=== PATIENT | female | born 1965 | race Caucasian/White ===

== ENCOUNTER 2018-02-05 10:50 | Emergency (ER) | payer MEDICAID, OTHER ==
--- NOTE | 2018-02-05 11:29 | ED Physician Documentation ---
PD HPI HEADACHE - Stated complaint Stated Complaint: HEADACHE/NAUSEA/VOMITING - Chief complaint Chief Complaint: Heent - History obtained from History obtained from: Patient, Family - History of Present Illness Timing - onset: How many days ago (2) Timing - onset during: Sleep, Rest Timing - duration: Days (3) Timing - details: Abrupt onset, Still present, Waxing and waning Worst headache ever?: Worst headache ever? Location: Front, Right Quality: Throbbing Associated symptoms: Stiff neck, Nausea, Vomiting. No: Fever, Weakness, Numbness, Syncope, Seizure, Eye pain, Vision changes Improved by: Rest, Meds Contributing factors: Hypertension. No: Anticoagulated, Possible carbon monoxide Similar symptoms before: Has not had sx before Recently seen: Not recently seen - Additional information Additional information: 52-year-old female who is under a lot of stress secondary to issues with her children has suddenly developed a headache on the right side of her head. She had this headache started up on her 3 days ago in the morning and she had resolution of the headache yesterday for a period of time. When she woke this morning the headache was back again and she is here now for evaluation and treatment. She has a throbbing sensation in the right side of her head pain in her neck right at the base of her skull she is able flex and extend her neck without difficulty. She has had some vomiting and she has had some diarrhea. She feels dehydrated. 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 - Present Medications Home Medications: Ambulatory Orders Medication Instructions Recorded Confirmed Ondansetron [Zofran] 4 mg PO Q6H PRN 11/02/13 01/13/15 Alprazolam [Xanax] 10/18/14 01/13/15 HYDROcod/ACETAM 5/325 [Vicodin 1 - 2 ea PO Q6H PRN 10/18/14 01/13/15 5/325] Lisinopril 10/18/14 01/13/15 Pantoprazole [Protonix] 40 mg PO BID #60 tablet 10/18/14 01/13/15 Promethazine Supp [Phenergan Supp] 25 mg MN Q6H PRN #15 supp 10/18/14 01/13/15 Sertraline [Zoloft] 10/18/14 01/13/15 Sucralfate [Carafate] 1 gm PO AC #90 tablet 10/18/14 01/13/15 Ondansetron [Zofran Odt] 8 mg PO Q6H PRN #20 tab.rapdis 01/13/15 Promethazine Supp [Phenergan Supp] 25 mg MN Q6H PRN #15 supp 01/13/15 oxyCODONE [Roxicodone] 5 mg PO Q4-6H PRN #20 tablet 01/13/15 Ondansetron Odt [Zofran] 4 mg TL Q6H PRN #10 tablet 02/05/18 Potassium Chloride 10 meq PO QID #10 tablet.er 02/05/18 - Allergies Allergies/Adverse Reactions: Allergies Allergy/AdvReac Type Severity Reaction Status Date / Time No Known Drug Allergies Allergy Verified 02/05/18 11:14 - Social History Does the pt smoke?: No Smoking Status: Never smoker Does the pt drink ETOH?: Yes Does the pt have substance abuse?: Yes PD ED PE NORMAL - Vitals Vital signs reviewed: Yes (hypertensive ) - General General: Alert and oriented X 3, Well developed/nourished, Other (appears to be in pain with 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, No motor deficit, No sensory deficit, Normal speech Eye Opening: Spontaneous Motor: Obeys Commands Verbal: Oriented GCS Score: 15 - Psych Psych: Normal mood, Normal affect Results - Vitals Vitals: Vital Signs - 24 hr 02/05/18 02/05/18 02/05/18 11:12 12:20 12:30 Temperature 36.4 C L Heart Rate 92 84 82 Respiratory 18 20 20 Rate Blood Pressure 186/112 H 179/112 H 192/124 H O2 Saturation 99 02/05/18 02/05/18 13:47 14:05 Temperature Heart Rate 69 65 Respiratory 14 16 Rate Blood Pressure 101/69 105/70 O2 Saturation 95 97 Oxygen O2 Source Room air - Labs Labs: Laboratory Tests 02/05/18 02/05/18 11:25 11:25 WBC 8.7 RBC 4.69 Hgb 15.8 Hct 46.0 MCV 98.0 MCH 33.7 H MCHC 34.4 RDW 13.9 Plt Count 245 MPV 8.5 Neut # (Auto) 6.4 Lymph # (Auto) 1.5 [place] # (Auto) 0.8 Eos # (Auto) 0.0 Baso # (Auto) 0.0 Absolute Nucleated RBC 0.00 Nucleated RBC % 0.0 Sodium 137 Potassium 2.7 L Chloride 96 L Carbon Dioxide 25 Anion Gap 16.0 H BUN 15 Creatinine 0.8 Estimated GFR (MDRD) 76 L Glucose 150 H Calcium 9.9 Total Bilirubin 1.0 AST 30 ALT 21 Alkaline Phosphatase 90 Total Protein 8.7 H Albumin 4.3 Globulin 4.4 H Albumin/Globulin Ratio 1.0 Lipase 23 - Rads (name of study) CT head without Radiology: Prelim report reviewed (Impression: Normal head CT without IV contrast. No change from 03/01/2008), EMP read indepedently, See rad report PD MEDICAL DECISION MAKING - ED course Complexity details: reviewed old records, reviewed results, re-evaluated patient , considered differential, d/w patient, d/w family ED course: 52-year-old female with chronic pain on Vicodin HP has developed an acute tension headache and has begun having some vomiting. She has not been able to hold her pain medications down. On examination she does have some pain in the trapezius at the insertion to the occiput on the right side and the corresponding right winston-cranial pain. - Sepsis Event Vital Signs: Vital Signs - 24 hr 02/05/18 02/05/18 02/05/18 11:12 12:20 12:30 Temperature 36.4 C L Heart Rate 92 84 82 Respiratory 18 20 20 Rate Blood Pressure 186/112 H 179/112 H 192/124 H O2 Saturation 99 02/05/18 02/05/18 13:47 14:05 Temperature Heart Rate 69 65 Respiratory 14 16 Rate Blood Pressure 101/69 105/70 O2 Saturation 95 97 Oxygen O2 Source Room air Departure - Departure Disposition: 01 Home, Self Care Clinical Impression: Tension headache, Dehydration, Hypokalemia Condition: Stable Instructions: ED Dehydration, ED Headache Tension, ED Potassium Deficiency Follow-Up: Salina Carrero PA [Primary Care Provider] - Prescriptions: Ondansetron Odt [Zofran] 4 mg TL Q6H PRN #10 tablet PRN Reason: Nausea / Vomiting Potassium Chloride 10 meq PO QID #10 tablet.er
[2018-02-05] MEDS ORDERED: ONDANSETRON 4 MG/2 ML VIAL IVP STA (11:31)
[2018-02-05] MEDS ORDERED: DEXAMETHASONE 10 MG/ML VIAL IVP STA (11:40)
[2018-02-05] MEDS ORDERED: SODIUM CHLORIDE 0.9% 1,000 ML IV ONE (11:40)
[2018-02-05] MEDS ORDERED: KETOROLAC 60 MG/2 ML VIAL IVP STA (11:40)
[2018-02-05] MEDS ORDERED: HYDROmorphone 1 MG/ML CARPUJECT IVP STA ×2 (11:40→13:54)
[2018-02-05] MEDS ORDERED: ONDANSETRON 4 MG/2 ML VIAL ONE (11:43)
[2018-02-05 11:52] LABS: BASOPHILS % (AUTO) 0.4 %; EOSINOPHILS % (AUTO) 0.3 %; HGB - HEMOGLOBIN 15.8 g/dL (12.0-16.0); LYMPHOCYTES # (AUTO) 1.5 10^3/uL (1.5-3.5); LYMPHOCYTES % (AUTO) 16.9 %; MEAN CORPUSCULAR HEMOGLOBIN 33.7 pg (27.0-31.0); MEAN CORPUSCULAR HGB CONC 34.4 g/dL (32.0-36.0); MEAN PLATELET VOLUME 8.5 fL (7.9-10.8); MONOCYTES # (AUTO) 0.8 10^3/uL (0.0-1.0); MONOCYTES % (AUTO) 8.9 %; NEUTROPHILS # (AUTO) 6.4 10^3/uL (1.5-6.6); NEUTROPHILS % (AUTO) 73.5 %; PLT - PLATELET COUNT 245 10^3/uL (130-450); RED BLOOD COUNT 4.69 10^6/uL (4.20-5.40); RED CELL DISTRIBUTION WIDTH 13.9 % (12.0-15.0); WHITE BLOOD COUNT 8.7 x10^3/uL (4.8-10.8)
[2018-02-05 12:04] LABS: ALBUMIN 4.3 g/dL (3.2-5.5); CALCIUM 9.9 mg/dL (8.5-10.3); CREATININE 0.8 mg/dL (0.4-1.0); TOTAL PROTEIN 8.7 g/dL (6.7-8.2)
--- NOTE | 2018-02-05 12:21 | CT Report ---
Procedure Date: 02/05/2018 Accession Number: [id number] / [id number] Procedure: CT - Head W/O CPT Code: FULL RESULT: EXAM: CT HEAD WITHOUT IV CONTRAST EXAM DATE: 02/05/2018. CLINICAL HISTORY: Throbbing headache. COMPARISON: 03/01/2008. TECHNIQUE: Multiaxial CT images were obtained from the foramen magnum to the vertex. Reformats: Coronal. IV contrast: None. In accordance with CT protocol optimization, one or more of the following dose reduction techniques were utilized for this exam: automated exposure control, adjustment of mA and/or KV based on patient size, or use of iterative reconstructive technique. FINDINGS: Parenchyma: No intraparenchymal hemorrhage. No evidence of mass, midline shift, or CT findings of infarction. Chand-white differentiation is distinct. Extraaxial Spaces: Normal. No hemorrhage or mass demonstrated. Ventricles: Normal in size and position. Sinuses and Orbits: The included sinuses are clear. Mastoids are normally aerated. Bones: No evidence of fracture or calvarial defect. Soft tissues: Normal. IMPRESSION: Normal head CT without IV contrast. No change from 03/01/2008. RADIA
[2018-02-05] MEDS ORDERED: POTASSIUM BICARB 25 MEQ TABLET PO STA (12:29)
[2018-02-05] MEDS ORDERED: diphenhydrAMINE INJ 50 MG/ML VIAL IVP STA (12:36)
[2018-02-05] MEDS ORDERED: PROCHLORPERAZINE 10 MG/2 ML VIAL IVP STA (12:36)
[2018-02-05 14:19] VITALS: BP 105/70
== END 2018-02-05 14:49 | disposition home or self-care (01) ==
LOC: ED 10:50
DX: G44.209 Tension-type headache, unspecified, not intractable (principal); E86.0 Dehydration; E87.6 Hypokalemia; I10 Essential (primary) hypertension
CPT/HCPCS: 36415; 70450; 80053; 83690; 85025; 96361; 96374; 96375; 96376; 99284; A9270; J1170; J1200

== ENCOUNTER 2018-02-07 11:42 | Emergency (ER) | payer MEDICAID ==
[2018-02-07] MEDS ORDERED: ONDANSETRON 4 MG/2 ML VIAL IVP STA (12:49)
[2018-02-07] MEDS ORDERED: SODIUM CHLORIDE 0.9% 1,000 ML IV ONE (12:49)
[2018-02-07] MEDS ORDERED: HYDROmorphone 2 MG/ML VIAL IVP STA ×2 (12:49→16:23)
[2018-02-07] MEDS ORDERED: LORazepam 2 MG/ML VIAL IVP STA ×2 (12:49→13:46)
--- NOTE | 2018-02-07 12:52 | ED Physician Documentation ---
PD HPI HEADACHE - Stated complaint Stated Complaint: HEADACHE/VOMITING - Chief complaint Chief Complaint: Neuro - History obtained from History obtained from: Patient - History of Present Illness Timing - onset: Other (This is a 52-year-old woman with chronic pain in her legs from prior trauma and multiple orthopedic surgeries who is maintained on alprazolam and Vicodin daily. 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 She was here 2 days ago for severe sudden onset right-sided headache that she had never had before. She was hypokalemic but head CT was negative. She was feeling better on discharge, but the headache recurred this morning severely. This was after a phone call with her daughter last night and she did not sleep well. It is a throbbing pain that is behind the right eye and radiating down the right side of the neck and shoulder. She does have neck stiffness with this but denies any fevers or chills. Prior to a few days ago she never really had headache) Review of Systems Ten Systems: 10 systems reviewed and negative Constitutional: denies: Fever, Chills Nose: denies: Rhinorrhea / runny nose, Congestion Throat: denies: Sore throat Cardiac: denies: Chest pain / pressure, Palpitations Respiratory: denies: Dyspnea, Cough GI: reports: Nausea, Vomiting. 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 - Present Medications Home Medications: Ambulatory Orders Medication Instructions Recorded Confirmed Ondansetron [Zofran] 4 mg PO Q6H PRN 11/02/13 01/13/15 Alprazolam [Xanax] 10/18/14 01/13/15 HYDROcod/ACETAM 5/325 [Vicodin 1 - 2 ea PO Q6H PRN 10/18/14 01/13/15 5/325] Lisinopril 10/18/14 01/13/15 Pantoprazole [Protonix] 40 mg PO BID #60 tablet 10/18/14 01/13/15 Promethazine Supp [Phenergan Supp] 25 mg MD Q6H PRN #15 supp 10/18/14 01/13/15 Sertraline [Zoloft] 10/18/14 01/13/15 Sucralfate [Carafate] 1 gm PO AC #90 tablet 10/18/14 01/13/15 Ondansetron [Zofran Odt] 8 mg PO Q6H PRN #20 tab.rapdis 01/13/15 Promethazine Supp [Phenergan Supp] 25 mg MD Q6H PRN #15 supp 01/13/15 oxyCODONE [Roxicodone] 5 mg PO Q4-6H PRN #20 tablet 01/13/15 Ondansetron Odt [Zofran] 4 mg TL Q6H PRN #10 tablet 02/05/18 Potassium Chloride 10 meq PO QID #10 tablet.er 02/05/18 Lorazepam [Ativan] 1 mg PO TID PRN #7 tablet 02/07/18 - Allergies Allergies/Adverse Reactions: Allergies Allergy/AdvReac Type Severity Reaction Status Date / Time No Known Drug Allergies Allergy Verified 02/05/18 11:14 - Social History Does the pt smoke?: No Smoking Status: Never smoker Does the pt drink ETOH?: Yes Does the pt have substance abuse?: Yes - Immunizations Immunizations are current?: Yes - POLST Patient has POLST: No PD ED PE NORMAL - Vitals Vital signs reviewed: Yes - General General: Alert and oriented X 3, Other (in pain) - HEENT HEENT: PERRL, EOMI - Neck Neck: Other (Not a super stiff neck but cannot touch her chin to her chest.) - Cardiac Cardiac: RRR, No murmur - Respiratory Respiratory: No respiratory distress, Clear bilaterally - Abdomen Abdomen: Normal bowel sounds, Soft, Non tender - Neuro Neuro: Alert and oriented X 3, 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 Eye Opening: Spontaneous Motor: Obeys Commands Verbal: Oriented GCS Score: 15 - Psych Psych: Normal mood, Normal affect Results - Vitals Vitals: Vital Signs - 24 hr 02/07/18 02/07/18 02/07/18 11:50 13:56 13:59 Temperature 36.5 C 37.1 C Heart Rate 86 72 Respiratory 20 16 Rate Blood Pressure 197/131 H 108/75 O2 Saturation 98 88 L 94 Oxygen O2 Source Nasal cannula - Labs Labs: Microbiology 02/07/18 13:22 CSF Culture - Preliminary Cerebral Spinal Fluid Laboratory Tests 02/07/18 02/07/18 12:12 13:22 Sodium 139 Potassium 3.1 L Chloride 103 Carbon Dioxide 22 Anion Gap 14.0 H BUN 13 Creatinine 0.8 Estimated GFR (MDRD) 76 L Glucose 136 H Calcium 9.1 CSF Color COLORLESS CSF Clarity CLEAR Xanthrochromic ABSENT CSF WBC 1 CSF RBC 0 CSF Cell Count Tube # CSF TUBE# 3 CSF Glucose 61 CSF Total Protein 28 Procedures - Lumbar Puncture Position: Laying right side Location: L3-L4 Anesthesia: Local lidocaine CSF: Clear Other: Sterile prep and drape, Patient tolerated well, No complications PD MEDICAL DECISION MAKING - ED course ED course: 52-year-old woman with the worst headache of her life, recurrent over the last few days, diagnostics from the other day are noted. Her potassium today was better. Given the neck stiffness and LP was performed after informed consent and negative for meningitis or subarachnoid hemorrhage. It was very difficult to control her headache here and multiple modalities were used with improvement. - Sepsis Event Vital Signs: Vital Signs - 24 hr 02/07/18 02/07/18 02/07/18 11:50 13:56 13:59 Temperature 36.5 C 37.1 C Heart Rate 86 72 Respiratory 20 16 Rate Blood Pressure 197/131 H 108/75 O2 Saturation 98 88 L 94 Oxygen O2 Source Nasal cannula Departure - Departure Disposition: 01 Home, Self Care Clinical Impression: Tension headache Condition: Good Record reviewed to determine appropriate education?: Yes Instructions: ED Headache Tension Prescriptions: Lorazepam [Ativan] 1 mg PO TID PRN #7 tablet PRN Reason: Anxiety Comments: Call your doctor to arrange a follow-up appointment, make the next available appointment. In the interim, return anytime if worse or if new symptoms develop.
[2018-02-07] MEDS ORDERED: LIDOCAINE 2%-EPI 1:100000 20 ML MDV ONE (13:25)
[2018-02-07 13:36] LABS: CLARITY,CSF CLEAR (CLEAR); COLOR,CSF COLORLESS (COLORLESS); CSF TUBE # CSF TUBE# 3; CSF XANTHOCHROMIA ABSENT (ABSENT); RED BLOOD CELL,CSF 0 /mm^3 (0-1); WHITE BLOOD CELL,CSF 1 /mm^3 (0-5)
[2018-02-07 13:46] LABS: CSF - GLUCOSE 61 mg/dL (45-70)
[2018-02-07] MEDS ORDERED: KETOROLAC 60 MG/2 ML VIAL IVP STA (13:46)
[2018-02-07 13:59] LABS: CALCIUM 9.1 mg/dL (8.5-10.3); CREATININE 0.8 mg/dL (0.4-1.0)
[2018-02-07] MEDS ORDERED: diphenhydrAMINE INJ 50 MG/ML VIAL IVP STA (14:28)
[2018-02-07] MEDS ORDERED: POTASSIUM BICARB 25 MEQ TABLET PO STA (14:28)
[2018-02-07] MEDS ORDERED: PROCHLORPERAZINE 10 MG/2 ML VIAL IVP STA (14:28)
[2018-02-07] MEDS ORDERED: ACETAMINOPHEN 325 MG TABLET PO STA (15:16)
[2018-02-07] MEDS ORDERED: CAFFEINE/SODIUM BENZOATE 500 MG in SODIUM CHLORIDE 0.9% 1,000 ML IV STA (15:16)
[2018-02-07 16:31] VITALS: BP 135/86
== END 2018-02-07 16:36 | disposition home or self-care (01) ==
LOC: ED 11:42
DX: G44.209 Tension-type headache, unspecified, not intractable (principal); M43.6 Torticollis; M54.2 Cervicalgia; I10 Essential (primary) hypertension
CPT/HCPCS: 36415; 62270; 80048; 82945; 84157; 87070; 87205; 89051; 96361; 96365; 96375; 96376; 99283; 99284; A9270; J1170; J1200; J2060